=== PATIENT | male | born 1980 | race Caucasian/White ===

== ENCOUNTER 2023-02-24 14:25 | Emergency (ER) | payer OTHER ==
[~2023-02-24] VITALS: Ht 167.6 cm; Wt 109.0 kg
[2023-02-24 14:36] VITALS: BP 128/87; PULSE 99; RESP 17; O2SAT 95
== END 2023-02-24 14:42 | disposition home or self-care (01) ==
LOC: ER 14:36
CPT/HCPCS: 99281; 99283